=== PATIENT | female | born 1995 | race Two or more races ===

== ENCOUNTER 2016-06-25 12:34 | Emergency (ER) | payer OTHER ==
[2016-06-25 12:52] VITALS: TEMP 98.3; BMI 29.5
[2016-06-25] MEDS ORDERED: ACETAMINOPHEN 500 MG TABLET (FP) PO ONE (13:37)
[2016-06-25] MEDS ORDERED: SODIUM CHLORIDE 1,000 ML IV STA (13:37)
[2016-06-25] MEDS ORDERED: ACETAMINOPHEN 325 MG TABLET (FP) ONE (13:45)
[2016-06-25 14:00] LABS: BASOPHIL 0.8 % (0-2.0); EOSINOPHIL 3.6 % (0-4.5); MCH 22.2 pg (25.7-33.7); MCHC 31.8 g/dl (32.0-36.0); MEAN CELL VOLUME 69.9 fl (80-96); MEAN PLT VOLUME 8.9 fl (7.5-11.1); NEUTROPHILS 62.1 % (42.8-82.8); PLATELET COUNT 239 K/MM3 (134-434); RDW 14.3 % (11.6-15.6); WHITE BLOOD COUNT 11.1 K/mm3 (4.0-10.0)
[2016-06-25 14:02] LABS: URINE APPEARANCE CLEAR; URINE BILIRUBIN NEGATIVE (NEGATIVE); URINE BLOOD NEGATIVE (NEGATIVE); URINE COLOR YELLOW; URINE GLUCOSE (UA) NEGATIVE (NEGATIVE); URINE KETONE NEGATIVE (NEGATIVE); URINE NITRITE NEGATIVE (NEGATIVE); URINE PROTEIN NEGATIVE (NEGATIVE); URINE UROBILINOGEN NEGATIVE E.U./dl (0.2-1.0)
[2016-06-25 14:05] LABS: URINE LEUK ESTERASE TRACE (NEGATIVE)
[2016-06-25 14:06] LABS: URINE BACTERIA RARE /hpf (NONE SEEN); URINE MUCUS RARE; URINE RBC 2 /hpf (0-3); URINE WBC 5 /hpf (3-5)
--- NOTE | 2016-06-25 14:15 | PDOC ---
History of Present Illness - General Stated Complaint: HEADACHE, 8 WKS Time Seen by Provider: 06/25/16 13:09 History Source: Patient Exam Limitations: No Limitations - History of Present Illness Initial Comments: 06/25/16 14:22 21-year-old female currently 8 weeks presents with frontal headache, mild sore throat, and lower abdominal cramping. Patient states has not had an ultrasound done yet for this and decided come to the ER. Patient states took no medication for the above but denies fever, chills, dizziness, visual changes, neck stiffness, difficulty swallowing, chest pain, shortness of breath vaginal discharge, or vaginal bleeding. Patient also has no urinary complaints. Timing/Duration: 24 hours Severity: mild Associated Symptoms: reports: headaches Past History - Past Medical History Allergies/Adverse Reactions: Allergies Allergy/AdvReac Type Severity Reaction Status Date / Time No Known Allergies Allergy Verified 06/25/16 13:56 Home Medications: Ambulatory Orders NK [No Known Home Medication] 06/25/16 Other medical history: none - Reproductive History Is Patient Now?: Yes - Psycho/Social/Smoking Cessation Hx Anxiety: No Suicidal Ideation: No Smoking History: Never smoked Have you smoked in the past 12 months: No Information on smoking cessation initiated: No Hx Alcohol Use: No Drug/Substance Use Hx: No Substance Use Type: None Patient Lives Alone: No Lives with/in: parents Review of Systems - Review of Systems Able to Perform ROS?: Yes Constitutional: No: Symptoms Reported HEENTM: Yes: Symptoms Reported, Throat Pain. No: Difficulty Swallowing Respiratory: No: Symptoms reported Cardiac (ROS): No: Symptoms Reported ABD/GI: Yes: Abdominal cramping : No: Symptoms Reported Musculoskeletal: No: Symptoms Reported Integumentary: No: Symptoms Reported Neurological: Yes: Headache (mild frontal) Endocrine: No: Symptoms Reported *Physical Exam - Vital Signs Last Vital Signs Temp Pulse Resp BP Pulse Ox 98.3 F 85 18 135/73 100 06/25/16 12:48 06/25/16 12:48 06/25/16 12:48 06/25/16 12:48 06/25/16 12:48 - Physical Exam General Appearance: Yes: Nourished, Appropriately Dressed. No: Apparent Distress HEENT: negative: Pale Conjunctivae, Pharyngeal Erythema, Tonsillar Erythema Neck: positive: Supple Respiratory/Chest: positive: Lungs Clear, Normal Breath Sounds. negative: Respiratory Distress, Accessory Muscle Use Cardiovascular: positive: Regular Rhythm, Regular Rate. negative: Murmur Female Pelvic Exam: positive: normal external exam (no bleeding no discharge) Gastrointestinal/Abdominal: positive: Soft, Tenderness (mild lower periumbilical ) Musculoskeletal: negative: CVA Tenderness Extremity: positive: Normal Capillary Refill Integumentary: positive: Normal Color, Warm, Moist Neurologic: positive: Motor Strength 5/5 ( ambulatory) ED Treatment Course - LABORATORY CBC & Chemistry Diagram: 06/25/16 13:37 06/25/16 13:37 - RADIOLOGY Radiology Studies Ordered: Category Date Time Status <14WKS US [US] Stat Ultrasound 06/25/16 13:37 Ordered Medical Decision Making - Medical Decision Making 06/25/16 14:24 Patient here for evaluation of mild frontal headache and sore throat accompanied with periumbilical cramping. Patient also states low back aching without urinary complaints. Patient on exam had lower periumbilical tenderness without decreased bowel sounds or vaginal bleeding/discharge. Patient ordered for labs, urine, Tylenol ultrasound. 06/25/16 15:38 Laboratory Tests 06/25/16 06/25/16 06/25/16 13:37 13:37 13:37 WBC 11.1 H Hgb 13.3 Hct 41.8 Sodium 137 Potassium 4.1 Chloride 101 Carbon Dioxide 27 Anion Gap 9 BUN 11 Creatinine 0.7 Random Glucose 80 Calcium 9.6 Total Bilirubin 0.6 AST 14 L ALT 18 Alkaline Phosphatase 73 Total Protein 7.1 Albumin 4.1 Ur Leukocyte Esterase Trace H Urine WBC 5 Ultrasound shows a single viable intrauterine at 6 weeks 3 days with a heart rate of 1 56 bpm. Patient states feeling better with the above medications and recommended to take Tylenol for discomfort at home. Patient's urine culture was sent although she has no complaints of urinary frequency but is in her first trimester I will discharge home on Keflex. *DC/Admit/Observation/Transfer Diagnosis at time of Disposition: Urinary tract infection Qualifiers: Urinary tract infection type: acute cystitis Hematuria presence: without hematuria Qualified Code(s): N30.00 - Acute cystitis without hematuria - Discharge Dispostion Disposition: HOME - Patient Instructions Printed Discharge Instructions: DI for Urinary Tract Infection (UTI), DI for Abdominal Pain -- Early Additional Instructions: Please take antibiotics as prescribed. Drink plenty of fluids and take Tylenol for discomfort.
[2016-06-25 14:25] LABS: ALBUMIN 4.1 g/dl (3.4-5.0); ANION GAP 9 (8-16); CALCIUM 9.6 mg/dL (8.5-10.1); CO2 27 mmol/L (21-32); GLUCOSE,RANDOM 80 mg/dL (74-106); PLATELET ESTIMATE ADEQUATE (NORMAL); SGPT/ALT 18 U/L (12-78)
[2016-06-25 14:28] LABS: ALK PHOS 73 U/L (45-117); BILIRUBIN,TOTAL 0.6 mg/dL (0.2-1.0); CREATININE 0.7 mg/dL (0.55-1.02); SGOT/AST 14 U/L (15-37); TOT PROT 7.1 g/dl (6.4-8.2)
--- NOTE | 2016-06-25 15:30 | PDOC ---
[id number] 100 06/25/16 12:48 06/25/16 12:48 06/25/16 12:48 06/25/16 12:48 06/25/16 12:48 - Physical Exam Comments: 06/25/16 15:30 The patient was examined by [BRODERICK Ocampo] under my direct supervision. I personally evaluated the patient. I concur with the above findings and the plan of care. ED Treatment Course - LABORATORY CBC & Chemistry Diagram: 06/25/16 13:37 06/25/16 13:37 - ADDITIONAL ORDERS Additional order review: Laboratory Results 06/25/16 06/25/16 13:37 13:37 Sodium 137 Potassium 4.1 Chloride 101 Carbon Dioxide 27 Anion Gap 9 BUN 11 Creatinine 0.7 Creat Clearance w eGFR > 60 Random Glucose 80 Calcium 9.6 Total Bilirubin 0.6 AST 14 L ALT 18 Alkaline Phosphatase 73 Total Protein 7.1 Albumin 4.1 Urine Color Yellow Urine Appearance Clear Urine pH 5.0 Ur Specific [place] 1.025 Urine Protein Negative Urine Glucose (UA) Negative Urine Ketones Negative Urine Blood Negative Urine Nitrite Negative Urine Bilirubin Negative Urine Urobilinogen Negative Ur Leukocyte Esterase Trace H Urine RBC 2 Urine WBC 5 Ur Epithelial Cells Rare Urine Bacteria Rare Urine Mucus Rare 06/25/16 13:37 RBC 5.98 H MCV 69.9 L MCHC 31.8 L RDW 14.3 MPV 8.9 Neutrophils % 62.1 Lymphocytes % 25.8 Monocytes % 7.7 Eosinophils % 3.6 Basophils % 0.8 - Medications Given in the ED: ED Medications Discontinued Medications Generic Name Dose Route Start Last Admin Trade Name Katya PRN Reason Stop Dose Admin Acetaminophen 975 mg 06/25/16 13:37 06/25/16 13:43 Tylenol - PO 06/25/16 13:38 975 mg ONCE ONE Administration Sodium Chloride 1,000 mls @ 1,000 mls/hr 06/25/16 13:37 06/25/16 13:43 Normal Saline - IV 06/25/16 14:36 1,000 mls/hr ASDIR STA Administration *DC/Admit/Observation/Transfer Diagnosis at time of Disposition: UTI (urinary tract infection) - Discharge Dispostion Disposition: HOME Condition at time of disposition: Fair - Prescriptions Prescriptions: Cephalexin [Keflex] 500 mg PO BID #14 capsule - Patient Instructions Printed Discharge Instructions: DI for Urinary Tract Infection (UTI), DI for Abdominal Pain -- Early Additional Instructions: Please take antibiotics as prescribed. Drink plenty of fluids and take Tylenol for discomfort.
[2016-06-25 15:50] VITALS: BP 115/80; PULSE 80
== END 2016-06-25 15:49 | disposition home or self-care (01) ==
LOC: JER 12:34
PROC: 3E0337Z Introduction of Electrolytic and Water Balance Substance into Peripheral Vein, Percutaneous Approach (ICD-10-PCS; principal; 2016-06-25)
DX: O23.31 Infections of other parts of urinary tract in pregnancy, first trimester (principal); Z3A.01 Less than 8 weeks gestation of pregnancy
CPT/HCPCS: 36415; 76801-TC; 80053; 81003; 81015; 85025; 87086; 96360; 99283-25

== ENCOUNTER 2016-10-15 14:09 | Emergency (ER) | payer OTHER ==
[2016-10-15 14:37] VITALS: BMI 26.6
[2016-10-15 15:46] VITALS: BP 113/63; PULSE 84; TEMP 98.1
[2016-10-15 16:46] LABS: URINE APPEARANCE CLEAR; URINE BILIRUBIN NEGATIVE (NEGATIVE); URINE BLOOD NEGATIVE (NEGATIVE); URINE COLOR DKYELLOW; URINE GLUCOSE (UA) NEGATIVE (NEGATIVE); URINE KETONE NEGATIVE (NEGATIVE); URINE NITRITE NEGATIVE (NEGATIVE); URINE UROBILINOGEN 4.0 E.U/dl mg/dL (0.2-1.0)
[2016-10-15 16:47] LABS: URINE LEUK ESTERASE 1+ (NEGATIVE); URINE PROTEIN 1+ (NEGATIVE)
[2016-10-15 16:49] LABS: URINE BACTERIA FEW /hpf (NONE SEEN); URINE MUCUS FEW; URINE RBC 5 /hpf (0-3); URINE WBC 11 /hpf (3-5)
== END 2016-10-15 17:06 | disposition home or self-care (01) ==
LOC: JER 14:09
DX: O26.892 Other specified pregnancy related conditions, second trimester (principal); R10.30 Lower abdominal pain, unspecified; Z3A.23 23 weeks gestation of pregnancy
CPT/HCPCS: 81003; 81015; 87086; 99281-25

== ENCOUNTER 2017-02-04 07:10 | Inpatient (IN) | payer OTHER ==
[2017-02-04] MEDS ORDERED: DEXTROSE 5%-LACTATED RINGERS 1,000 ML IV SCH (07:45)
[2017-02-04] MEDS ORDERED: BUTORPHANOL TARTRATE 1 MG/ML VIAL IVPB ONE (07:45)
[2017-02-04] MEDS ORDERED: PROMETHAZINE HCL 25 MG/1 ML VIAL IVPB ONE (08:00)
[2017-02-04 08:24] VITALS: BMI 29.8
[2017-02-04 09:15] LABS: BASOPHIL 0.4 % (0-2.0); EOSINOPHIL 3.8 % (0-4.5); MCH 22.4 pg (25.7-33.7); MEAN PLT VOLUME 9.2 fl (7.5-11.1); NEUTROPHILS 68.8 % (42.8-82.8); PLATELET COUNT 171 K/MM3 (134-434); RDW 14.2 % (11.6-15.6); WHITE BLOOD COUNT 13.1 K/mm3 (4.0-10.0)
[2017-02-04 09:31] LABS: ANION GAP 11 (8-16); CALCIUM 8.6 mg/dL (8.5-10.1); CO2 22 mmol/L (21-32); CREATININE 0.5 mg/dL (0.55-1.02); GLUCOSE,RANDOM 88 mg/dL (74-106)
[2017-02-04 09:48] LABS: INR 0.88 (0.82-1.09); PROTHROMBIN TIME (PATIENT) 9.9 SEC (9.98-11.88)
[2017-02-04 09:50] LABS: ACTIVATED PTT 29.2 SECONDS (26.9-34.4)
--- NOTE | 2017-02-04 12:22 | HP ---
Past Medical History - Admission Chief Complaint: contractions History of Present Illness: 21yo LMP 05/06/16 EDC 02/10/17 SIUP at 39.1 weeks with c/o contractions. No lof, no vaginal bleeding. PNC at [facility] significant for sickle cell carrier; possible alpha thalassemia carrier. Pt also with chlamydia treated in 06/2016. 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: No: Alzheimer's, CVA, Dementia, Migraine, Multiple Sclerosis, Peripheral Neuropathy, Parkinson's, Seizure, Syncope, TIA, Vertigo, Other Cardiovascular: No: AFIB, Aneurysm, Aortic Insufficiency, Aortic Stenosis, CAD, CHF, Deep Vein Thrombosis, HTN, Hyperlipdemia, TN, Mitral Insufficiency, Mitral Stenosis, Murmur, Pulmonary Hypertension, Other Pulmonary: No: Asthma, Bronchitis, Cancer, COPD, O2 Dependent, Pneumonia, Previously Intubated, Pulmonary Embolus, Pulmonary Fibrosis, Sleep Apnea, Other Gastrointestinal: No: Ascites, Cancer, Constipation, Crohn's Disease, Diverticulitis, Diverticulosis, Esophageal Varices, Gastritis, GERD, GI Bleed, Hemorrhoids, Hiatal Hernia, Inflamatory Bowel Disease, Irritable Bowel Disease, Pancreatitis, Peptic Ulcer Disease, Ulcerative Colitis, Other Hepatobiliary: No: Cirrhosis, Cholelithiasis, Cholecystitis, Choledocholithiasis , Hepatitis A, Hepatitis B, Hepatitis C, Other Renal/: No: Renal Failure, Renal Inusuff, BPH, Cancer, Hematuria, Hemodialysis , Neurogenic Bladder, Renal Calculi, UTI, Other ...: 1 ...Para: 0 ...Term: 0 ...: 0 ...Spon : 0 ...Induced : 0 ...Multiple Gestation: 0 ...LMP: 05/06/16 ... Weeks Gestation by Dates: 39.1 ...EDC by Dates: 02/10/17 ...EDC by Sono: 02/13/17 Heme/Onc: Yes: Sickle Cell Trait - Past Surgical History Past Surgical History: Yes: None Hx Myomectomy: No Hx Transabdominal Cerclage: No - Smoking History Smoking history: Never smoked Have you smoked in the past 12 months: No - Alcohol/Substance Use Hx Alcohol Use: No Home Medications - Allergies Allergies/Adverse Reactions: Allergies Allergy/AdvReac Type Severity Reaction Status Date / Time iron AdvReac Intermediate Hives Verified 02/04/17 08:32 - Home Medications Home Medications: Ambulatory Orders Vitamins (Sjr) - 1 tab PO DAILY 11/07/16 Family Disease History - Family Disease History Family History: Unremarkable Review of Systems - Review of Systems Constitutional: denies: No Symptoms, Chills, Diaphoresis, Fever, Lethargy, Loss of Appetite, Malaise, Night Sweats, Unintentional Wgt. Loss, Weakness, Other Eyes: denies: No Symptoms, Blind Spots, Blurred Vision, Double Vision, Eye Pain , Floaters, Photophobia, Recent Change in Vision, Other HENT: denies: No Symptoms, Difficult Swallowing, Ear Discharge, Ear Pain, Epistaxis, Gingival Bleeding, Hearing Loss, Mouth Swelling, Nasal Congestion, Ocular Prosthesis, Throat Pain, Toothache, Ringing in Ears, Other Neck: denies: No Symptoms, Decreased ROM, Lumps, Pain on Movement, Stiffness, Swollen Glands, Tenderness, Other Cardiovascular: denies: No Symptoms, Chest Pain, Edema, Palpitations, Shortness of Breath, Other Respiratory: denies: No Symptoms, Cough, Exercise Intolerance, Hemoptysis, Orthopnea, PND, Snoring, SOB, SOB on Exertion, Wheezing, Other Gastrointestinal: reports: Abdominal Pain Genitourinary: reports: Pain Breasts: denies: No Symptoms Reported, See HPI, Breast Implants, Discharge from Nipple, Lumps, Pain, Skin Changes, Other Musculoskeletal: reports: No Symptoms Integumentary: reports: No Symptoms Neurological: reports: No Symptoms Endocrine: reports: No Symptoms Hematology/Lymphatic: reports: No Symptoms Psychiatric: reports: No Symptoms Physical Exam - Maternity Vital Signs: Vital Signs Temperature 98.6 F 02/04/17 10:00 Pulse Rate 76 02/04/17 10:54 Respiratory Rate 20 02/04/17 10:54 Blood Pressure 135/75 02/04/17 10:54 O2 Sat by Pulse Oximetry (%) Constitutional: Yes: Well Nourished, No Distress, Calm Eyes: Yes: WNL, Conjunctiva Clear, EOM Intact HENT: Yes: WNL, Atraumatic, Normocephalic Neck: Yes: WNL, Supple, Trachea Midline Cardiovascular: Yes: WNL, Regular Rate and Rhythm Breast(s): Yes: WNL - Abdominal Exam/OB Fundal Height: 39 Number of Fetuses: Single Presentation: Vertex Contractions: Yes Regularity: Regular Intensity: Mod/Strong Monitor Mode: External Heart Rate (range): 120 Heart Rate Location: [facility] Category: I Accelerations: Uniform Decelerations: None - Vaginal Exam/OB Vaginal Bleediing: No Speculum Exam: No Dilatation (cm): 10 Effacement (%): 100 Amniotic Membrane Status: Bulging (srom during exam; clear fluid) Amniotic Fluid: Yes: Clear Presentation: Vertex/Position Station: +2 - Physical Exam Musculoskeletal: Yes: WNL Extremities: Yes: WNL Edema: Yes - Labs Lab Results: CBC, BMP 02/04/17 09:00 02/04/17 09:00 Hemorrhage Risk Assessment - Risk Factors Medium Risk Factors: Yes: None High Risk Factors: Yes: None Risk Score: 1 Risk Level: Medium Risk Problem List - Problems (1) Labor and delivery, indication for care Assessment/Plan: 21yo at term in active labor anticipate category [address] Wilson Code(s): O75.9 - COMPLICATION OF LABOR AND DELIVERY, UNSPECIFIED
[2017-02-04] MEDS ORDERED: BISACODYL 10 MG SUPP.RECT RC PRN (12:24)
[2017-02-04] MEDS ORDERED: BENZOCAINE 28 GM HEMORRHOIDAL OINTMENT TP PRN (12:24)
[2017-02-04] MEDS ORDERED: oxyCODONE HCL 5 MG TABLET PO PRN (12:24)
[2017-02-04] MEDS ORDERED: METHYLERGONOVINE MALEATE 0.2 MG/1 ML AMP IM PRN (12:24)
[2017-02-04] MEDS ORDERED: WITCH HAZEL 50% (TUCKS) 40 PAD/JAR PAD TP PRN (12:24)
[2017-02-04] MEDS ORDERED: BENZOCAINE 20% 57 GM BOTTLE TP PRN (12:24)
--- NOTE | 2017-02-04 12:24 | PN ---
Delivery - Delivery Vaginal Delivery: No Problems Type of Anesthesia: Local Episiotomy/Laceration: Vaginal Extension/lac, 2nd degree EBL (cc): 350 Delivery, Single - Stages of Labor Date 1st Stage Initiatied: 02/04/17 Time 1st Stage Initiated: 05:00 Date 2nd Stage Initiated: 02/04/17 Time 2nd Stage Initiated: 10:55 Date of Delivery: 02/04/17 Time of Delivery: 11:25 Time Placenta Delivered: 11:28 - Condition of Infant Inside Tester/Product Engineering Manager Present: No Infant Gender: Female Position: Right, OA Total Hours ROM (Hrs/Mins): 30 MINS - 1 Minute Total Score: 9 5 Minutes Total Score: 9 - Feeding Plan Initial Plan: Elected not to breastfeed exclusively throughout hospitalization Remarks - Remarks Remarks: Pt fully dilated and pushing delivered viable female infant from THUAN cephalic presentation over intact perineum. No nuchal cord. Anterior shoulder and body delivered spontaneously and without difficulty. Placenta delivered intact with 3vc. 2nd degree laceration repaired with excellent hemostasis and tenriism of anatomy. Fundus firm. Vault empty. Baby to n
--- NOTE | 2017-02-04 12:27 | DS ---
Physical Exam-INTERVENTION NURSE Vital Signs: Vital Signs Temperature 98.6 F 02/04/17 10:00 Pulse Rate 76 02/04/17 10:54 Respiratory Rate 20 02/04/17 10:54 Blood Pressure 135/75 02/04/17 10:54 O2 Sat by Pulse Oximetry (%) Constitutional: Yes: Well Nourished, No Distress, Calm Eyes: Yes: WNL, Conjunctiva Clear, EOM Intact HENT: Yes: WNL, Atraumatic, Normocephalic Neck: Yes: WNL, Supple, Trachea Midline Cardiovascular: Yes: WNL, Regular Rate and Rhythm Respiratory: Yes: WNL, Regular, CTA Bilaterally Gastrointestinal: Yes: WNL ...Rectal Exam: Yes: WNL Renal/: Yes: WNL Breast(s): Yes: WNL Musculoskeletal: Yes: WNL Extremities: Yes: WNL Integumentary: Yes: WNL Neurological: Yes: WNL, Alert, Oriented ...Motor Strength: WNL Psychiatric: Yes: WNL, Alert, Oriented Labs: CBC, BMP 02/04/17 09:00 02/04/17 09:00 Delivery - Delivery Vaginal Delivery: No Problems Type of Anesthesia: Local Episiotomy/Laceration: Vaginal Extension/lac, 2nd degree EBL (cc): 350 Delivery, Single - Stages of Labor Date 1st Stage Initiatied: 02/04/17 Time 1st Stage Initiated: 05:00 Date 2nd Stage Initiated: 02/04/17 Time 2nd Stage Initiated: 10:55 Date of Delivery: 02/04/17 Time of Delivery: 11:25 Time Placenta Delivered: 11:28 - Condition of Infant City Comptroller/Resawyer Present: No Gender: Female Position: Right, OA Total Hours ROM (Hrs/Mins): 30 MINS - 1 Minute Total Score: 9 5 Minutes Total Score: 9 - Feeding Plan Initial Plan: Elected not to breastfeed exclusively throughout hospitalization Discharge Summary Reason For Visit: LABOR Current Active Problems Labor and delivery, indication for care (Acute) Condition: Good - Instructions Diet, Activity, Other Instructions: Physical activity Resume your normal everyday activity as tolerated no heavy lifting or exercise until seen by your surgeon. You may walk unlimited edward of and climb stairs. You may resume driving the car when you feel safe and comfortable behind the wheel. No sexual activity as instructed. Wound care If you have a bandage, leave it on, and keep dry for 48-72 hours. After that time discard the outer bandage. If they are tapes on the skin under the out of bandage leave them in place. They will peel off in the next 7 to 10 days. Do Not Peel them off. You may shower the day after surgery. If there are tapes present on the skin, you may shower over them. Diet There are no dietary restrictions. Eat healthy, high-fiber foods. Drink 6 to 8 glasses of liquid each day. This will assist in keeping your bowels are regular. Pain management You may take Tylenol or acetaminophen or Ibuprofen (for example, Motrin, Advil etc.) from my pain prescription medication is ordered should be taken as prescribed for moderate to severe pain. Call MD for any of the following: Severe pain not relieved by medication Fever of 101 or higher Excessive bleeding or drainage on dressing Inability to urinate Disposition: HOME - Home Medications Comprehensive Discharge Medication List: Ambulatory Orders Vitamins (Sjr) - 1 tab PO DAILY 11/07/16
[2017-02-04] MEDS ORDERED: OXYTOCIN 20 UNITS in 0.9% NS 20 UNIT/1,000 ML INFUS.BAG IV SCH (12:30)
[2017-02-04] MEDS: IBUPROFEN 600 MG TABLET (FP) PO PRN (13:52)
[2017-02-04] MEDS: ACETAMINOPHEN 325 MG TABLET (FP) PO PRN (13:53)
[2017-02-05] MEDS: IBUPROFEN 600 MG TABLET (FP) PO PRN ×2 (04:19→18:30)
[2017-02-05] MEDS: ACETAMINOPHEN 325 MG TABLET (FP) PO PRN ×2 (04:19→18:31)
[2017-02-05 07:40] LABS: BASOPHIL 0.2 % (0-2.0); MCH 22.6 pg (25.7-33.7); MCHC 32.5 g/dl (32.0-36.0); MEAN CELL VOLUME 69.7 fl (80-96); MEAN PLT VOLUME 9.1 fl (7.5-11.1); PLATELET COUNT 171 K/MM3 (134-434); RDW 14.3 % (11.6-15.6); WHITE BLOOD COUNT 17.9 K/mm3 (4.0-10.0)
[2017-02-05] MEDS ORDERED: DIPHTH,PERTUSS(ACELL),TET 0.5 ML DISP.SYRIN IM ONE (10:00)
[2017-02-05] MEDS ORDERED: FLU VACC QS2017-18 36MOS UP/PF 60 MCG/0.5 ML SYRINGE IM ONE (10:00)
[2017-02-05] MEDS: PRENATAL VITAMINS W/ FOLIC ACID TABLET (FP) PO SCH (11:00)
--- NOTE | 2017-02-05 16:03 | PN ---
Post Progress Note Post Day: 2 Type of Delivery: Vital Signs: Vital Signs Temperature 97.7 F 02/05/17 09:35 Pulse Rate 77 02/05/17 09:35 Respiratory Rate 18 02/05/17 09:35 Blood Pressure 105/67 02/05/17 09:35 O2 Sat by Pulse Oximetry (%) 100 02/04/17 12:45 Breast Exam: Yes: Soft Uterus: Yes: Fundus Firm Abdomen/GI: Yes: Abdomen soft Lochia: Yes: Rubra Lochia, amount: Small Extremities: Yes: Calves non-tender Perineum: Yes: Intact Activity: Ambulating - Labs Labs: CBC WBC 17.9 K/mm3 (4.0-10.0) H D 02/05/17 06:35 RBC 4.95 M/mm3 (3.60-5.2) 02/05/17 06:35 Hgb 11.2 GM/dL (10.7-15.3) 02/05/17 06:35 Hct 34.5 % (32.4-45.2) 02/05/17 06:35 MCV 69.7 fl (80-96) L 02/05/17 06:35 MCH 22.6 pg (25.7-33.7) L 02/05/17 06:35 MCHC 32.5 g/dl (32.0-36.0) 02/05/17 06:35 RDW 14.3 % (11.6-15.6) 02/05/17 06:35 Plt Count 171 K/MM3 (134-434) 02/05/17 06:35 MPV 9.1 fl (7.5-11.1) 02/05/17 06:35 Neutrophils % 72.0 % (42.8-82.8) 02/05/17 06:35 Lymphocytes % 18.1 % (8-40) 02/05/17 06:35 Monocytes % 7.7 % (3.8-10.2) 02/05/17 06:35 Eosinophils % 2.0 % (0-4.5) 02/05/17 06:35 Basophils % 0.2 % (0-2.0) 02/05/17 06:35 Assessment/Plan ppd#1 no issues will dc home tomorrow
[2017-02-05] MEDS ORDERED: SENNOSIDES/DOCUSATE COMBO (SENNA PLUS) TABLET (UD) PO PRN (22:00)
[2017-02-06] MEDS: PRENATAL VITAMINS W/ FOLIC ACID TABLET (FP) PO SCH (09:37)
[2017-02-06 12:15] VITALS: BP 129/80; PULSE 74; TEMP 99.8
== END 2017-02-06 11:45 | disposition home or self-care (01) | DRG 560 ==
LOC: JDEL 07:10 → JLDR 07:45 → J3W 13:17
PROVIDERS: ADMIT Obstetrics & Gynecology; ATTEND Obstetrics & Gynecology
PROC: 10E0XZZ Delivery of Products of Conception, External Approach (ICD-10-PCS; principal; 2017-02-04)
PROC: 0KQM0ZZ Repair Perineum Muscle, Open Approach (ICD-10-PCS; 2017-02-04)
DX: O70.1 Second degree perineal laceration during delivery (principal); Z3A.39 39 weeks gestation of pregnancy; Z37.0 Single live birth
CPT/HCPCS: 36415; 59409; 80048; 85025; 85610; 85730; 86593; 86850; 86900; 86901; 90686; 90715; G0008